=== PATIENT | male | born 2000 | race Two or more races ===

== ENCOUNTER 2019-02-01 10:26 | Emergency (ER) | payer BC ==
[2019-02-01] MEDS ORDERED: TDAP ADULT 0.5 ML INJ (BOOSTRIX) IM ONE (11:36)
--- NOTE | 2019-02-01 11:49 | EDPHY ---
H & P Stated Complaint: slipped on ice last night no loc, lac post. head Time Seen by Provider: 02/01/19 11:36 HPI/ROS: HPI: This is a 18-year-old male who presents with Chief Complaint: slipped on ice last night no loc, lac post. head Location: Head Quality: Injury Duration: Around 4-5 a.m. This morning Signs and Symptoms: + bleeding, no radiation, no numbness, no weakness, no tingling, no incontinence, no decreased range of motion, no swelling, no pain, no fever Timing: Acute Severity: Mild Context: Patient is a student at [employer], walking home yesterday in the [employer] min[employer] blasting hours around 4:05 a.m. And slipped on "black ice. " He reports that he hit the side of his head and caused a laceration. Denies LOC/neck pain/dizziness/nausea/vomiting/amnesia. This was a witnessed fall by his friends at bedside. He Was ambulatory and able to walk home. He went home and fell asleep. He woke up this morning and noted dried blood around the area of injury. Reports tetanus is current. No history of concussions. Modifying Factors: Direct pressure Comment: ROS: A comprehensive 10 system review of systems is otherwise negative aside from elements mentioned in the history of present illness. MEDICAL/SURGICAL/SOCIAL HISTORY: Medical history: Generally healthy. Does not take any regular medications. Surgical history: Denies Social history: Student at [employer]. Drinks socially. Denies tobacco use. CONSTITUTIONAL: Well-developed, well-nourished, polite teenage male, awake and alert, no obvious distress HEENT: 4 in linear laceration occipital scalp; dry blood noted and normocephalic. NECK: supple, no midline tenderness, flexion 45 degrees, extension 45 degrees, right and left lateral flexion 45 degrees. No meningismus. Cardiovascular: Normal S1/S2, regular rate, regular rhythm, without murmur rub or gallop. PULMONARY/CHEST: Symmetrical and nontender. no crepitus. Clear to auscultation bilaterally. Good air movement. No accessory muscle usage. ABDOMEN: Soft, nondistended, nontender, no ecchymosis. PELVIC: no pain with rocking; bilateral hips flexion 125 degrees, extension 30 degrees, with no pain internal rotation and no pain external rotation. BACK: No midline tenderness, no paraspinous spasm, deep tendon reflexes 2/2, no pain with straight leg raise, No foot drop. Achilles reflexes are equal bilaterally. Able to walk on heels and toes without difficulty. EXTREMITIES: 2/2 pulses, strength 5/5, DIP/PIP/MCP flexion/extension intact with good light touch sensation. no deformities, no clubbing, no cyanosis or edema. NEUROLOGICAL: no focal neuro deficits. GCS 15. Light touch sensation intact. SKIN: Warm and dry, no erythema. no rash. Good capillary refill. Source: Patient Exam Limitations: No limitations - Personal History Current Tetanus/Diphtheria Vaccine: No Current Tetanus Diphtheria and Acellular Pertussis (TDAP): No - Medical/Surgical History Hx Asthma: No Hx Chronic Respiratory Disease: No Hx Diabetes: No Hx Cardiac Disease: No Hx Renal Disease: No Hx Cirrhosis: No Hx Alcoholism: No Other PMH: denies - Social History Smoking Status: Never smoked Constitutional: Initial Vital Signs Temperature (C) 36.9 C 02/01/19 10:31 Heart Rate 87 02/01/19 10:31 Respiratory Rate 16 02/01/19 10:31 Blood Pressure 127/83 H 02/01/19 10:31 O2 Sat (%) 99 02/01/19 10:31 O2 Delivery Mode Room Air Allergies/Adverse Reactions: No Known Allergies Allergy (Unverified 02/01/19 10:31) Home Medications: Medication Instructions Recorded NK [No Known Home Meds] 02/01/19 Medical Decision Making Procedures: Procedure: Laceration repair. Verbal consent was obtained from the patient. The 4 in, linear, superficial, simple laceration on the occipital scalp was anesthetized in the usual fashion using 5 mL of 1% lidocaine with epinephrine. The wound was irrigated, draped and explored to its base with a gloved finger. There were no deep structures involved. No tendon injury was identified. The wound was repaired with #4, guero. Good hemostasis was achieved and patient tolerated procedure well. Bacitracin applied. The procedure was performed by myself. ED Course/Re-evaluation: Vital signs reviewed and stable upon arrival. Tetanus is up-to-date. Based on nexus protocol, head CT imaging not indicated. No LOC. No neurological deficits. No signs of concussion. Local anesthesia provided, copiously irrigated Laceration closed with 4 guero Verbal and written wound care instructions provided This patient was seen under the supervision of my secondary supervising physician. I evaluated care for this patient independently. Differential Diagnosis: Head injury including but not limited to concussion, skull fracture, intraparenchymal contusion, subarachnoid, subdural and epidural hematoma. - Data Points Medications Given: Discontinued Medications Diphtheria/Tetanus/Acell Pertussis (Boostrix) 0.5 ml IM .ONCE ONE Stop: 02/01/19 11:37 Last Admin: 02/01/19 12:04 Dose: 0.5 ml Departure - Departure Disposition: Home, Routine, Self-Care Clinical Impression: Laceration of occipital region of scalp without complication Qualifiers: Encounter type: initial encounter Qualified Code(s): S01.01XA - Laceration without foreign body of scalp, initial encounter Condition: Good Instructions: Laceration (ED), Staple Care (ED) Additional Instructions: Keep the laceration dry and in place for 48 hours. After 48 hours, you may wash the site daily with mild soap and water; then pat dry. Take Tylenol 650 mg every 4 hours and/or Ibuprofen 600 mg every 8 hours with food as needed for pain. Apply ice for 30 minutes at a time; 2-3 times per day for the next 1-2 days. Wound Care Follow-Up: Removal of guero in [ 7 ] days. Staple removal is complimentary in uncomplicated cases. Infection or abnormal findings would require reevaluation by the MD. In that case, you may be billed. You sustained a closed head injury and it is recommended that you observe concussion precautions. Please do not participate in any contact sports or moderate and strenuous activity until all symptoms have resolved or cleared by PCP/Concussion Clinic. Consume a minimum of 8-10 glasses of water or electrolyte fluid replacement drinks that include Gatorade, Powerade, Pedialyte. You are to be closely monitored and observed for the 12 hr following initial injury time. Please refrain from drinking alcohol excessively. If symptoms last longer than 1 week, please follow-up with [facility] or Dr. Reyes in the concussion Clinic. Return to the ER immediately if you have progressive headaches, neurologic deficits, gait abnormality, visual disturbance, slurred speech, or any other symptom that concerns you. Referrals: DONNIE Cantu,. [Clinic] - As per Instructions
[2019-02-01 12:25] VITALS: BP 152/91
== END 2019-02-01 12:24 | disposition home or self-care (01) ==
PROC: 0HQ0XZZ Repair Scalp Skin, External Approach (ICD-10-PCS; principal; 2019-02-01)
DX: S01.01XA Laceration without foreign body of scalp, initial encounter (principal); W00.0XXA Fall on same level due to ice and snow, initial encounter; Y92.480 Sidewalk as the place of occurrence of the external cause; Z23 Encounter for immunization